=== PATIENT | male | born 1990 | race Caucasian/White ===

== ENCOUNTER 2021-01-30 12:30 | Outpatient (CLI) | payer BC ==
[~2021-01-30] VITALS: Ht 185.4 cm; Wt 129.5 kg
[2021-01-30 12:25] VITALS: BP 113/70
[~2021-01-30 12:30] MED LIST changes: -AZIT500T PO; -CEFD300C3 PO; -DEXA6TAB6 PO; +LACTATED RINGERS 1,000 ML IV SCH; +ONDANSETRON 4 MG/2 ML (SDV) Z0FRAN IVP ONE; -RT-ALBUINH IH
[2021-01-30] MEDS ORDERED: EPINEPHrine INJECTION 1 MG/ML AMP IM PRN (12:45)
[2021-01-30] MEDS ORDERED: diphenhydrAMINE 50 MG/ML INJ (BENADRYL) IV PRN (12:45)
[2021-01-30] MEDS ORDERED: CASIRIVIMAB/IMDEVIMAB 1,200 MG in NS (IVPB) 250 ML IV ONE (12:45)
[2021-01-30] MEDS ORDERED: LACTATED RINGERS 1,000 ML IV ONE (13:00)
[2021-01-30 15:00] VITALS: BP 120/68
== END 2021-01-30 15:05 ==
LOC: INFUSION 12:30
PROVIDERS: ATTEND Nurse Practitioner Family
DX: Z23 Encounter for immunization (principal); U07.1 COVID-19

== ENCOUNTER → 2021-01-30 | Emergency (ER) | payer BC ==
[~2021-01-30] MED LIST: AZIT500T PO; CEFD300C3 PO; DEXA6TAB6 PO; RT-ALBUINH IH
== END ==
LOC: EDUNIT# 12:01 → ER 12:07
DX: U07.1 COVID-19 (principal)

== ENCOUNTER 2021-02-02 18:33 | Emergency (ER) | payer BC ==
[~2021-02-02] VITALS: Ht 185 cm; Wt 129.2 kg
--- NOTE | 2021-02-02 19:23 | ED Cough/URI ---
General Chief Complaint: Respiratory Problems Stated Complaint: COVID +, SOA BAM INF ON WEDNESDAY Nursing Triage Note: Pt ambulatory to ED. Pt reports being diagnosed with COVID on Wednesday. Pt reports BAM infusion on either or Wednesday. Pt c/o SOB and worsening symptoms. Pt reports O2 at home of 88%-91%. Source: patient History of Present Illness Date Seen by Provider: Feb 02, 2021 Time Seen by Provider: 19:00 Initial Comments PT ARRIVES VIA POV FROM HOME PT STATES HE BEGAN GETTING SICK LAST Wednesday01/24/21 C/O NON-PRODUCTIVE COUGH C/O NASAL CONGESTION C/O SORE THROAT C/O LOSS OF TASTE AND SMELL C/O FEVER UP TO 104--WAS ONLY 99.9 TODAY, AND HAS NOT BEEN > 101 FOR A COUPLE OF DAYS C/O HEADACHE C/O BODY ACHES C/O NAUSEA, A LITTLE BIT OF VOMITING AND A LITTLE BIT OF DIARRHEA, BUT STILL EATING AND DRINKING STATES TODAY HE FEELS A LITTLE SHORT OF BREATH, O2 SATS AT HOME 88-91% WENT TO [facility] AND HAD DRIVE THRU COVID TEST DONE ON Wednesday01/27/21 AND WAS POSITIVE WORKS HERE AT HOSPITAL, AND ER [employer]ER [employer] ORDERED OUTPATIENT REGEN-COV INFUSION ON Wednesday01/31/21 HAS NOT ACTUALLY BEEN SEEN BY ANYONE AT ANY TIME FOR THIS PROBLEM NO HISTORY OF RESPIRATORY PROBLEMS OR ANY CHRONIC ILLNESSES HAS NOT TAKEN ANYTHING FOR SYMPTOMS PT HAS NOT RECEIVED COVID-19 VACCINE 3 KIDS AT HOME ALL WITH COVID WELL. IS NOT ILL BUT HAS NOT BEEN TESTED. PCP: [facility] Allergies and Home Medications Allergies Coded Allergies: No Known Drug Allergies (Unverified , 01/30/21) Home Medications Albuterol Sulfate 1 Puff Puff, 2 PUFF IH Q4H 1 PUFF = 90 MCG Prescribed by: ALBERTO WINTER on 02/02/212031 Azithromycin 500 Mg Tablet, 500 MG PO DAILY Prescribed by: ALBERTO WINTER on 02/02/212031 Cefdinir 300 Mg Capsule, 300 MG PO BID Prescribed by: ALBERTO WINTER on 02/02/212031 Dexamethasone 6 Mg Tablet, 6 MG PO DAILY Prescribed by: ALBERTO WINTER on 02/02/212031 Patient Home Medication List Home Medication List Reviewed: Yes Review of Systems Review of Systems Constitutional: see HPI, fever EENTM: see HPI Respiratory: see HPI Cardiovascular: no symptoms reported; No chest pain Gastrointestinal: see HPI Genitourinary: no symptoms reported Musculoskeletal: see HPI Skin: no symptoms reported; No rash Psychiatric/Neurological: See HPI Hematologic/Lymphatic: No Symptoms Reported Immunological/Allergic: no symptoms reported Past Jjxswsm-Yrgnwq-Hpnjck Hx Patient Social History Tobacco Use?: Yes Smokeless Tobacco Frequency: Current Someday User Substance use?: No Alcohol Use?: No Pt feels they are or have been: No Past Medical History Surgery/Hospitalization HX: LEFT KNEE SCOPE Surgeries: Yes Orthopedic Respiratory: No Cardiac: No Neurological: No Genitourinary: No Gastrointestinal: No Musculoskeletal: Yes (LEFT KNEE SCOPE) Endocrine: No HEENT: No Cancer: No Psychosocial: No Integumentary: No Blood Disorders: No Physical Exam Vital Signs - First Documented 02/02/21 18:45 Temp 37.4 Pulse 63 Resp 20 B/P (MAP) 111/71 (84) Pulse Ox 95 O2 Delivery Room Air Capillary Refill : Less Than 3 Seconds Height: '" Weight: lbs. oz. kg; 37.00 BMI Method: General Appearance: WD/WN, no apparent distress, other (DOES NOT APPEAR ILL OR TO BE IN ANY DISCOMFORT OR DISTRESS) HEENT: PERRL/EOMI, normal ENT inspection, TMs normal, pharynx normal Neck: normal inspection Respiratory: normal breath sounds, no respiratory distress, no accessory muscle use Cardiovascular: regular rate, rhythm, no edema, no JVD, no murmur Gastrointestinal: soft Extremities: normal inspection, no pedal edema, normal capillary refill Neurologic/Psychiatric: cotton sampler II-XII nml as tested, no motor/sensory deficits, alert, normal mood/affect, oriented x 3 Skin: normal color Focused Exam Lactate Level 02/02/21 19:39: Lactic Acid Level 1.25 Lactic Acid Level Laboratory Tests Test 02/02/21 19:39 Lactic Acid Level 1.25 MMOL/L (0.50-2.00) Progress/Results/Core Measures Suspected Sepsis SIRS Temperature: Pulse: 63 Respiratory Rate: 20 Laboratory Tests 02/02/21 19:39: White Blood Count 8.5 Blood Pressure 111 /71 Mean: 84 02/02/21 19:39: Lactic Acid Level 1.25 Laboratory Tests 02/02/21 19:39: Creatinine 0.91, Platelet Count 230, Total Bilirubin 0.9 Results/Orders Lab Results Laboratory Tests Test 02/02/21 19:39 02/02/21 20:25 Range/Units White Blood Count 8.5 4.3-11.0 10^3/uL Red Blood Count 5.04 4.30-5.52 10^6/uL Hemoglobin 15.2 13.3-17.7 g/dL Hematocrit 43 40-54 % Mean Corpuscular Volume 86 80-99 fL Mean Corpuscular Hemoglobin 30 25-34 pg Mean Corpuscular Hemoglobin Concent 35 32-36 g/dL Red Cell Distribution Width 12.5 10.0-14.5 % Platelet Count 230 130-400 10^3/uL Mean Platelet Volume 11.9 9.0-12.2 fL Immature Granulocyte % (Auto) 1 % Neutrophils (%) (Auto) 79 H 42-75 % Lymphocytes (%) (Auto) 14 12-44 % Monocytes (%) (Auto) 6 0-12 % Eosinophils (%) (Auto) 0 0-10 % Basophils (%) (Auto) 0 0-10 % Neutrophils # (Auto) 6.7 1.8-7.8 10^3/uL Lymphocytes # (Auto) 1.2 1.0-4.0 10^3/uL Monocytes # (Auto) 0.5 0.0-1.0 10^3/uL Eosinophils # (Auto) 0.0 0.0-0.3 10^3/uL Basophils # (Auto) 0.0 0.0-0.1 10^3/uL Immature Granulocyte # (Auto) 0.1 0.0-0.1 10^3/uL Sodium Level 138 135-145 MMOL/L Potassium Level 3.8 3.6-5.0 MMOL/L Chloride Level 101 98-107 MMOL/L Carbon Dioxide Level 21 21-32 MMOL/L Anion Gap 16 H 5-14 MMOL/L Blood Urea Nitrogen 10 7-18 MG/DL Creatinine 0.91 0.60-1.30 MG/DL Estimat Glomerular Filtration Rate 99 BUN/Creatinine Ratio 11 Glucose Level 94 70-105 MG/DL Lactic Acid Level 1.25 0.50-2.00 MMOL/L Calcium Level 8.9 8.5-10.1 MG/DL Corrected Calcium 9.0 8.5-10.1 MG/DL Magnesium Level 2.2 1.6-2.4 MG/DL Total Bilirubin 0.9 0.1-1.0 MG/DL Aspartate Amino Transf (AST/SGOT) 59 H 5-34 U/L Alanine Aminotransferase (ALT/SGPT) 55 0-55 U/L Alkaline Phosphatase 46 40-136 U/L Total Protein 7.3 6.4-8.2 GM/DL Albumin 3.9 3.2-4.5 GM/DL Procalcitonin 0.07 <0.10 NG/ML My Orders Orders - ALBERTO WINTER DO Ed Iv/Invasive Line Start (02/02/21 19:15) Monitor-Rhythm Ecg Trace Only (02/02/21 19:15) Chest 1 View, Ap/Pa Only (02/02/21 19:15) Cbc With Automated Diff (02/02/21 19:15) Comprehensive Metabolic Panel (02/02/21 19:15) Lactic Acid Analyzer (02/02/21 19:15) Magnesium (02/02/21 19:15) Blood Culture (02/02/21 19:15) Dexamethasone Injection (Decadron Inje (02/02/21 19:15) Lactated Ringers (Lr 1000 Ml Iv Solution (02/02/21 19:45) Ed Iv/Invasive Line Start (02/02/21 19:53) Lactated Ringers (Lr 1000 Ml Iv Solution (02/02/21 20:00) Ceftriaxone (Rocephin) (02/02/21 20:15) Azithromycin Injection (Zithromax Inject (02/02/21 20:15) Procalcitonin (Pct) (02/02/21 20:25) Rt Request For Service (02/02/21 20:32) Rx-Albuterol Inhaler (Rx-Ventolin Hfa) (02/02/21 20:32) Medications Given in ED Current Medications Medications Dose Ordered Sig/Beth Route Start Time Stop Time Status Last Admin Dose Admin Azithromycin 500 mg/Sodium Chloride 250 ml @ 250 mls/hr ONCE ONCE IV 02/02/21 20:15 02/02/21 21:14 DC 02/02/21 20:49 250 MLS/HR Ceftriaxone Sodium 1000 mg/ Sterile Water 10 ml @ 200 mls/hr ONCE ONCE IV 02/02/21 20:15 02/02/21 20:17 DC 02/02/21 20:49 200 MLS/HR Lactated Ringer's 1,000 ml @ 0 mls/hr Q0M ONCE IV 02/02/21 20:00 02/02/21 20:01 DC 02/02/21 20:00 1,000 MLS/HR Vital Signs/I&O 02/02/21 02/02/21 02/02/21 02/02/21 18:45 20:20 21:00 21:19 Temp 37.4 37.4 36.8 Pulse 63 62 81 Resp 20 20 18 B/P (MAP) 111/71 (84) 117/74 117/79 Pulse Ox 95 97 97 95 O2 Delivery Room Air Room Air Room Air Room Air Capillary Refill : Less Than 3 Seconds Blood Pressure Mean: 84 Progress Note : Progress Note PLACED IN ISOLATION ROOM PPE WORN AT ALL TIMES NO HYPOXIA--O2 SATS 95-98% ON ROOM AIR THROUGHOUT ER STAY NO DYSPNEA AT ANY TIME NO COUGH AT ANY TIME NO FEVER AT ANY TIME NO ABNORMAL VITALS PT HAD NO COMPLAINTS DURING ER STAY Diagnostic Imaging Comments CXR--PER RADIOLOGIST REPORT AT 2013 FINDINGS: Heart size is mildly enlarged. Scattered bilateral pulmonary opacities are present. Most pronounced in the mid and lower lung henry. Slight increased density over the right hilum. IMPRESSION: Bilateral pulmonary opacities consistent with multiple lobe pneumonia which would include Covid. The severity of consolidations is considered moderate. Slightly more focal consolidation in the right hilum. Follow up imaging recommended. Dictated on workstation # [id number] Reviewed: Reviewed by Me Departure Impression Primary Impression: Pneumonia due to COVID-19 virus Disposition: HOME, SELF-CARE Condition: Stable Departure-Patient Inst. Decision time for Depature: 20:25 Referrals: [facility] [place] Patient Instructions: COVID-19 ED, Recovery After COVID-19, Preventing the Spread of an Infectious Disease, Pneumonia, Adult (DC) Add. Discharge Instructions: LOTS OF CLEAR LIQUIDS--WATER, BROTH, JELLO, GATORADE TYLENOL 1 GRAM/ MOTRIN 800 MG 4 TIMES A DAY FOR PAIN OR FEVER OVER THE COUNTER MUCINEX DM FOR COUGH AND CONGESTION FOLLOW UP WITH OF ALDO IN 3-4 DAYS FOR FURTHER CARE All discharge instructions reviewed with patient and/or family. Voiced understanding. Scripts Albuterol Sulfate (PROAIR HFA) 1 Puff Puff 2 PUFF IH Q4H, #1 EA 1 PUFF = 90 MCG Prov: ALBERTO WINTER DO 02/02/21 Cefdinir (Cefdinir) 300 Mg Capsule 300 MG PO BID, #20 CAP Prov: ALBERTO WINTER DO 02/02/21 Azithromycin (Zithromax) 500 Mg Tablet 500 MG PO DAILY for 5 Days, #5 TAB Prov: ALBERTO WINTER DO 02/02/21 Dexamethasone (Decadron) 6 Mg Tablet 6 MG PO DAILY, #10 TAB Prov: ALBERTO WINTER DO 02/02/21 ALBERTO WINTER DO Feb 02, 2021 19:23
[2021-02-02] MEDS ORDERED: LACTATED RINGERS 1,000 ML IV ONE ×2 (19:45→20:00)
[2021-02-02 19:49] LABS: BASOPHILS % (AUTO) 0 % (0-10); EOSINOPHILS % (AUTO) 0 % (0-10); HEMATOCRIT 43 % (40-54); HEMOGLOBIN 15.2 g/dL (13.3-17.7); LYMPHOCYTES # (AUTO) 1.2 10^3/uL (1.0-4.0); LYMPHOCYTES % (AUTO) 14 % (12-44); MEAN CORPUSCULAR HEMOGLOBIN 30 pg (25-34); MEAN CORPUSCULAR HGB CONC 35 g/dL (32-36); MEAN CORPUSCULAR VOLUME 86 fL (80-99); MEAN PLATELET VOLUME 11.9 fL (9.0-12.2); MONOCYTES # (AUTO) 0.5 10^3/uL (0.0-1.0); MONOCYTES % (AUTO) 6 % (0-12); NEUTROPHILS # (AUTO) 6.7 10^3/uL (1.8-7.8); NEUTROPHILS % (AUTO) 79 % (42-75); PLATELET COUNT 230 10^3/uL (130-400); WHITE BLOOD COUNT 8.5 10^3/uL (4.3-11.0)
--- NOTE | 2021-02-02 20:07 | Diagnostic Imaging Report ---
INDICATION: COVID+, DYSPNEA. Increasing symptoms and shortness of air. TECHNIQUE: Single view chest 7:27 p.m. CORRELATION STUDY: None. FINDINGS: Heart size is mildly enlarged. Scattered bilateral pulmonary opacities are present. Most pronounced in the mid and lower lung henry. Slight increased density over the right hilum. IMPRESSION: Bilateral pulmonary opacities consistent with multiple lobe pneumonia which would include Covid. The severity of consolidations is considered moderate. Slightly more focal consolidation in the right hilum. Follow up imaging recommended. Dictated by: Dictated on workstation # [id number]
[2021-02-02] MEDS ORDERED: cefTRIAXone 1,000 MG in WATER (STERILE) FOR INJECTION 10 ML IV ONE (20:15)
[2021-02-02] MEDS ORDERED: AZITHROMYCIN INJECTION 500 MG in NS (IVPB) 250 ML IV ONE (20:15)
[2021-02-02 20:16] LABS: ALBUMIN 3.9 GM/DL (3.2-4.5); POTASSIUM 3.8 MMOL/L (3.6-5.0)
[2021-02-02 20:17] LABS: CALCIUM 8.9 MG/DL (8.5-10.1)
[2021-02-02 20:18] LABS: TOTAL PROTEIN 7.3 GM/DL (6.4-8.2)
[2021-02-02 20:20] LABS: BILIRUBIN,TOTAL 0.9 MG/DL (0.1-1.0)
[2021-02-02 20:22] LABS: CREATININE SERUM 0.91 MG/DL (0.60-1.30)
[2021-02-02 20:25] LABS: MAGNESIUM 2.2 MG/DL (1.6-2.4)
[2021-02-02] MEDS ORDERED: DEXA6TAB6 PO (20:32)
[2021-02-02] MEDS ORDERED: AZIT500T PO (20:32)
[2021-02-02] MEDS ORDERED: CEFD300C3 PO (20:32)
[2021-02-02] MEDS ORDERED: RX-ALBUTEROL INHALER (VENTOLIN HFA) 8.5 GM IH STA (20:32)
[2021-02-02] MEDS ORDERED: RT-ALBUINH IH (20:32)
[2021-02-02 21:19] VITALS: BP 117/79
== END 2021-02-02 21:19 | disposition home or self-care (01) ==
LOC: EDUNIT# 18:33 → ER 18:36
DX: U07.1 COVID-19 (principal); J12.82 Pneumonia due to coronavirus disease 2019; F17.200 Nicotine dependence, unspecified, uncomplicated
CPT/HCPCS: 36415; 71045; 80053; 83605; 83735; 84145; 85025; 87040; 93041